=== PATIENT | female | born 1980 | race Caucasian/White ===

== ENCOUNTER 2017-07-28 07:00 | Inpatient (IN) | payer MEDICAID ==
[~2017-07-28] VITALS: Ht 165.1 cm; Wt 43.9 kg
[2017-07-28] MEDS ORDERED: SODIUM CHLORIDE 0.9% 1,000 ML IV ONE (08:07)
[2017-07-28 08:10] LABS: Basophils % (auto) 1.2 % (0.0-2.0); Eosinophils # (auto) 0.1 uL; Eosinophils % (auto) 2.1 % (0.0-7.0); Monocytes # (auto) 0.4 uL; Nucleated Red Blood Cells % 0.2 %
[2017-07-28 08:11] LABS: Basophils # (auto) 0 uL; Hematocrit 42.7 % (36.0-46.0); Hemoglobin 14.5 g/dL (12.2-16.2); Lymphocytes # (auto) 1.6 uL; Lymphocytes % (auto) 38.7 % (10.0-50.0); Mean Corpuscular Hemoglobin 34.8 pg (28.0-32.0); Mean Corpuscular Hgb Conc. 33.9 g/dL (32.0-36.0); Mean Corpuscular Volume 102.6 fL (80.0-100.0); Monocytes % (auto) 10.1 % (0.0-12.0); Neutrophils % (auto) 47.9 % (37.0-80.0); Platelet Count (auto) 166 10^3/uL (140-450); Red Blood Cells 4.16 10^6/uL (4.0-5.20); Red Cell Distribution Width 17.3 % (11.8-14.3); White Blood Cell 4.2 10^3/uL (4.4-10.8)
[2017-07-28 08:27] LABS: Albumin 3.8 g/dL (3.4-5.0); BUN/Creatinine Ratio 18.6; Calcium 8.3 mg/dL (8.5-10.1); Potassium 3.1 mmol/L (3.5-5.1); Total Protein 7.6 g/dL (6.4-8.2)
[2017-07-28 09:44] LABS: Urine Pregnacy Test Negative (Negative)
[2017-07-28 09:49] LABS: Amphetamine Screen, Urine NEGATIVE (NEGATIVE); Barbiturate Scree,Urine NEGATIVE (NEGATIVE); Benzodiazephine Screen, Urine NEGATIVE (NEGATIVE); Cannabinoid Screen, Urine NEGATIVE (NEGATIVE); Cocaine Screen, Urine NEGATIVE (NEGATIVE); Opiate Scree,Urine NEGATIVE (NEGATIVE); Phencyclidine Screen, Urine NEGATIVE (NEGATIVE)
[2017-07-28 09:52] LABS: Urine Bacteria FEW /hpf (None Seen); Urine Blood TRACE /uL (Negative); Urine Mucus FEW (None Seen); Urine Specific Gravity 1.015 (1.001-1.035); Urine WBC 3 /hpf (0 - 5)
[2017-07-28] MEDS ORDERED: THIAMINE HCL 100 MG/ML 2ML VIAL IV ONE (12:15)
[2017-07-28] MEDS ORDERED: LORazepam 2MG/ML-1ML VIAL IV PRN (12:15)
[2017-07-28] MEDS ORDERED: NITROGLYCERIN 0.4 MG SL TAB SL PRN (12:15)
[2017-07-28] MEDS ORDERED: MORPHINE SULFATE 4 MG/ML SYR/VIAL IV PRN (12:15)
[2017-07-28] MEDS ORDERED: chlordiazePOXIDE HCL 25 MG CAP PO PRN (12:15)
[2017-07-28] MEDS ORDERED: MORPHINE SULFATE 10 MG/ML INJ 1ML SDV IV PRN ×2 (12:15→12:30)
[2017-07-28] MEDS ORDERED: cefTRIAXone 1GM/10ml IVPUSH 10 ML IV ONE (12:15)
[2017-07-28] MEDS ORDERED: chlordiazePOXIDE HCL 5 MG CAP PO ONE (12:30)
[2017-07-28] MEDS ORDERED: FAMOTIDINE (10MG/ML) 2ML VL IV ONE (12:30)
[2017-07-28] MEDS: SODIUM CHLORIDE 0.9% 1,000 ML IV SCH ×2 (13:01→18:54)
[2017-07-28] MEDS: POTASSIUM CHL 20MEQ/100ML 100 ML IV SCH ×3 (13:12→16:20)
[2017-07-28] MEDS ORDERED: PANTOPRAZOLE 40 MG/10 ML VIAL IV ONE (13:30)
[2017-07-28] MEDS: GENTAMICIN OPTH sol 0.3% 5ml RIGHTEYE SCH ×3 (15:30→21:35)
[2017-07-28 15:50] VITALS: BP_SYST 99; BP_DIAS 57; BP_DIAS 61
[2017-07-28] MEDS: metroNIDAZOLE 500MG/100ML 100 ML IV SCH ×2 (16:20→21:35)
[2017-07-28 17:40] VITALS: BP 90/60
[2017-07-28] MEDS: chlordiazePOXIDE HCL 5 MG CAP PO SCH ×2 (18:15→23:57)
[2017-07-28] MEDS: MORPHINE SULFATE 10 MG/ML INJ 1ML SDV IV PRN (20:03)
[2017-07-28] MEDS: PANTOPRAZOLE 40 MG/10 ML VIAL IV SCH (21:35)
[2017-07-28 22:00] VITALS: BP 117/86
[2017-07-28] MEDS ORDERED: FAMOTIDINE (10MG/ML) 2ML VL IV SCH (22:00)
[2017-07-28] MEDS ORDERED: POTASSIUM CHL 20MEQ/100ML 100 ML IV ONE (23:08)
[2017-07-29] MEDS: GENTAMICIN OPTH sol 0.3% 5ml RIGHTEYE SCH ×6 (01:38→21:25)
[2017-07-29] MEDS: SODIUM CHLORIDE 0.9% 1,000 ML IV SCH ×4 (01:38→21:24)
[2017-07-29] MEDS: PROMETHAZINE HCL 25 MG/ML 1ML IV PRN ×2 (01:49→12:41)
[2017-07-29] MEDS: MORPHINE SULFATE 10 MG/ML INJ 1ML SDV IV PRN ×2 (01:49→22:04)
[2017-07-29 05:00] VITALS: BP 120/79
[2017-07-29] MEDS: chlordiazePOXIDE HCL 5 MG CAP PO SCH ×4 (05:31→23:34)
[2017-07-29] MEDS: metroNIDAZOLE 500MG/100ML 100 ML IV SCH (05:31)
[2017-07-29 05:44] LABS: Basophils # (auto) 0 uL; Basophils % (auto) 0.8 % (0.0-2.0); Eosinophils # (auto) 0 uL; Mean Corpuscular Volume 104.8 fL (80.0-100.0); Monocytes # (auto) 0.5 uL; Neutrophils # (auto) 3.2 uL
[2017-07-29 05:47] LABS: Eosinophils % (auto) 0.2 % (0.0-7.0); Hematocrit 34.2 % (36.0-46.0); Hemoglobin 11.5 g/dL (12.2-16.2); Lymphocytes % (auto) 21.4 % (10.0-50.0); Mean Corpuscular Hemoglobin 35.4 pg (28.0-32.0); Mean Corpuscular Hgb Conc. 33.8 g/dL (32.0-36.0); Monocytes % (auto) 10.2 % (0.0-12.0); Neutrophils % (auto) 67.4 % (37.0-80.0); Nucleated Red Blood Cells % 0.1 %; Platelet Count (auto) 120 10^3/uL (140-450); Red Blood Cells 3.26 10^6/uL (4.0-5.20); Red Cell Distribution Width 17.1 % (11.8-14.3); White Blood Cell 4.8 10^3/uL (4.4-10.8)
[2017-07-29 06:07] LABS: Albumin 3.5 g/dL (3.4-5.0); BUN/Creatinine Ratio 9.5; Bilirubin, Total 1.8 mg/dL (0.2-1.0); Calcium 7.8 mg/dL (8.5-10.1); Potassium 4.9 mmol/L (3.5-5.1); Total Protein 6.8 g/dL (6.4-8.2)
[2017-07-29 06:47] LABS: Cholesterol 222 mg/dL (< 200); HDL Cholesterol 138 mg/dL (40-59); LDL Cholesterol 72 mg/dL (< 100); Triglycerides 99 mg/dL (< 150)
[2017-07-29 07:53] VITALS: BP 118/74
[2017-07-29] MEDS ORDERED: cefTRIAXone 1GM/10ml IVPUSH 10 ML IV SCH (09:00)
[2017-07-29 09:39] LABS: Hepatitis B Surface Antigen Negative (Negative)
[2017-07-29 09:43] LABS: Hepatitis B Core IgM Negative; Hepatitis C Antibody Negative (Negative)
[2017-07-29 09:45] LABS: Hepatitis A Ab IgM Negative
[2017-07-29] MEDS: PANTOPRAZOLE 40 MG/10 ML VIAL IV SCH ×2 (09:57→21:24)
[2017-07-29] MEDS: THIAMINE HCL 100 MG/ML 2ML VIAL IV SCH (09:57)
[2017-07-29 11:34] VITALS: BP 120/88
[2017-07-29 15:01] LABS: INR 0.97 (0.9-1.15); Partial Thromboplastin Time 25.8 sec (22.64-33.71); Prothrombin Time 10.6 sec (9.37-12.3)
[2017-07-29 15:59] VITALS: BP 119/92
[2017-07-29] MEDS ORDERED: MORPHINE SULF INJ 2 MG/ML SYRINGE 1ML ONE (22:00)
[2017-07-29 22:11] VITALS: BP 132/92
[2017-07-30] MEDS: GENTAMICIN OPTH sol 0.3% 5ml RIGHTEYE SCH ×5 (01:30→17:39)
[2017-07-30] MEDS: PROMETHAZINE HCL 25 MG/ML 1ML IV PRN ×2 (01:37→05:41)
[2017-07-30] MEDS: SODIUM CHLORIDE 0.9% 1,000 ML IV SCH ×2 (04:49→10:54)
[2017-07-30 05:00] VITALS: BP 114/85
[2017-07-30] MEDS ORDERED: MORPHINE SULF INJ 2 MG/ML SYRINGE 1ML ONE (05:35)
[2017-07-30] MEDS: chlordiazePOXIDE HCL 5 MG CAP PO SCH ×3 (05:39→17:39)
[2017-07-30 05:40] LABS: Basophils # (auto) 0 uL; Basophils % (auto) 0.3 % (0.0-2.0); Eosinophils # (auto) 0 uL; Lymphocytes # (auto) 0.5 uL; Monocytes # (auto) 0.3 uL; Neutrophils % (auto) 84.9 % (37.0-80.0); Nucleated Red Blood Cells % 0.1 %; White Blood Cell 5.6 10^3/uL (4.4-10.8)
[2017-07-30] MEDS: MORPHINE SULFATE 10 MG/ML INJ 1ML SDV IV PRN (05:41)
[2017-07-30 05:43] LABS: Eosinophils % (auto) 0.9 % (0.0-7.0); Hematocrit 40.5 % (36.0-46.0); Hemoglobin 13.8 g/dL (12.2-16.2); Lymphocytes % (auto) 9.1 % (10.0-50.0); Mean Corpuscular Hemoglobin 35.9 pg (28.0-32.0); Mean Corpuscular Volume 105.6 fL (80.0-100.0); Monocytes % (auto) 4.8 % (0.0-12.0); Neutrophils # (auto) 4.7 uL; Platelet Count (auto) 112 10^3/uL (140-450); Red Blood Cells 3.83 10^6/uL (4.0-5.20); Red Cell Distribution Width 16.9 % (11.8-14.3)
[2017-07-30 06:01] LABS: Albumin 3.6 g/dL (3.4-5.0); Calcium 8.5 mg/dL (8.5-10.1); Potassium 3.8 mmol/L (3.5-5.1)
[2017-07-30 06:04] LABS: Bilirubin, Total 1.9 mg/dL (0.2-1.0); Total Protein 7.3 g/dL (6.4-8.2)
[2017-07-30] MEDS ORDERED: LIDOCAINE VISCOUS 2% 15ML UD ONE (08:00)
[2017-07-30] MEDS ORDERED: SODIUM CHLORIDE LOCK 10 ML ONE (08:00)
[2017-07-30] MEDS ORDERED: diphenhdrAMINE HCL 50 MG/1 ML VL ONE (08:01)
[2017-07-30] MEDS ORDERED: fentaNYL CITRATE 100 MCG/2 ML VL ONE (08:01)
[2017-07-30] MEDS ORDERED: MIDAZOLAM HCL 5 MG/ML-1ML VIAL ONE (08:01)
[2017-07-30 08:33] VITALS: BP 107/78
[2017-07-30] MEDS: PANTOPRAZOLE 40 MG/10 ML VIAL IV SCH (10:02)
[2017-07-30] MEDS: THIAMINE HCL 100 MG/ML 2ML VIAL IV SCH (10:02)
[2017-07-30] MEDS ORDERED: GEN03OS RIGHTEYE (12:44)
[2017-07-30] MEDS ORDERED: PANT40T PO (12:44)
[2017-07-30] MEDS ORDERED: HYDROcodone-ACET 5/325MG TAB PO PRN (12:45)
[2017-07-30] MEDS ORDERED: PROM25TA5 PO (12:49)
[2017-07-30] MEDS ORDERED: FOLIC ACID 1 MG TAB PO SCH (13:00)
[2017-07-30 13:04] VITALS: BP 126/83
[2017-07-30 16:53] VITALS: BP 133/91
[2017-07-30] MEDS ORDERED: LABE100T PO (17:45)
[2017-07-30] MEDS ORDERED: PANTOPRAZOLE 40 MG TAB PO SCH (22:00)
[2017-07-30] MEDS ORDERED: LABETALOL HCL 200 MG TAB PO SCH (22:00)
[2017-07-31] MEDS ORDERED: THIAMINE HCL 100 MG TAB PO SCH (10:00)
== END 2017-07-30 19:30 | disposition home or self-care (01) | DRG 775 ==
LOC: ER 07:00 → TELE 07:01 → TELE-WESTW 15:18 → WEST WING 07-29 14:50
PROVIDERS: ADMIT Internal Medicine; ATTEND Internal Medicine
PROC: 0DB68ZX Excision of Stomach, Via Natural or Artificial Opening Endoscopic, Diagnostic (ICD-10-PCS; principal; 2017-07-30 11:12)
DX: F10.229 Alcohol dependence with intoxication, unspecified (principal); F10.239 Alcohol dependence with withdrawal, unspecified; D69.6 Thrombocytopenia, unspecified; K29.21 Alcoholic gastritis with bleeding; K70.10 Alcoholic hepatitis without ascites; F31.9 Bipolar disorder, unspecified; K70.0 Alcoholic fatty liver; K75.9 Inflammatory liver disease, unspecified; G89.4 Chronic pain syndrome; M79.7 Fibromyalgia; R53.82 Chronic fatigue, unspecified; Y90.8 Blood alcohol level of 240 mg/100 ml or more; F41.9 Anxiety disorder, unspecified; H53.8 Other visual disturbances; E87.6 Hypokalemia; H10.9 Unspecified conjunctivitis; R63.6 Underweight; Z68.1 Body mass index [BMI] 19.9 or less, adult
CPT/HCPCS: 36415; 43239; 70450; 74176; 76705; 80053; 80061; 80074; 80307; 80320; 81001; 81025; 82150; 83690; 83735; 84443; 84702; 85025; 85610; 85652; 85730; 86141; 87086; 96361; 96365; 96375; C9113; J2250; J3480; J3490

== ENCOUNTER 2018-03-13 20:57 | Inpatient (IN) | payer MEDICAID ==
[~2018-03-13] VITALS: Ht 162.6 cm; Wt 52.1 kg
[~2018-03-13 20:57] MED LIST: GEN03OS RIGHTEYE; LABE100T4 PO; PANT40T PO; PROM25TA5 PO
[2018-03-13 21:46] LABS: Basophils # (auto) 0 uL; Basophils % (auto) 0.6 % (0.0-2.0); Eosinophils # (auto) 0.1 uL; Eosinophils % (auto) 1.5 % (0.0-7.0); Hematocrit 38.5 % (36.0-46.0); Hemoglobin 12.7 g/dL (12.2-16.2); Lymphocytes % (auto) 19.8 % (10.0-50.0); Mean Corpuscular Hemoglobin 30.9 pg (28.0-32.0); Mean Corpuscular Volume 93.6 fL (80.0-100.0); Monocytes # (auto) 0.5 uL; Monocytes % (auto) 10.3 % (0.0-12.0); Neutrophils # (auto) 3.6 uL; Neutrophils % (auto) 67.8 % (37.0-80.0); Nucleated Red Blood Cells % 0.6 %; Platelet Count (auto) 146 10^3/uL (140-450); Red Blood Cells 4.12 10^6/uL (4.0-5.20); Red Cell Distribution Width 16.6 % (11.8-14.3); White Blood Cell 5.2 10^3/uL (4.4-10.8)
[2018-03-13 22:00] LABS: INR 1.06 (0.9-1.15); Partial Thromboplastin Time 26.1 sec (23.78-33.04); Prothrombin Time 11.3 sec (9.27-12.13)
[2018-03-13 22:32] LABS: Alanine Aminotransferase 44 U/L (13-56); Albumin 3.9 g/dL (3.4-5.0); Alkaline Phosphatase 246 U/L (45-117); Amylase 152 U/L (25-115); Anion Gap 9 (5-15); Aspartate Aminotransferase 151 U/L (15-37); BUN/Creatinine Ratio 6.1; Blood Urea Nitrogen 5 mg/dL (7-18); Calcium 9.7 mg/dL (8.5-10.1); Carbon Dioxide 23 mmol/L (21-32); Chloride 102 mmol/L (98-107); GFR African American 101 mL/min; GFR Non-African American 84 mL/min; Glucose 154 mg/dL (74-106); Lipase 4740 U/L (73-393); Magnesium 1.9 mg/dL (1.6-2.6); Sodium 134 mmol/L (136-145); Total Protein 8.1 g/dL (6.4-8.2)
[2018-03-13 22:58] LABS: Urine Bacteria NONE SEEN /hpf (None Seen); Urine Blood Negative /uL (Negative); Urine Specific Gravity 1.013 (1.001-1.035); Urine WBC <1 /hpf (0 - 5)
[2018-03-14] MEDS ORDERED: IOHEXOL 300 MG/ML 100ML BOTTLE IJ ONE (02:26)
[2018-03-14] MEDS ORDERED: KETOROLAC TROMETH 30 MG/ML 1ML VIAL IV ONE (02:30)
[2018-03-14] MEDS ORDERED: SODIUM CHLORIDE 0.9% 3,000 ML IV ONE (02:30)
[2018-03-14] MEDS ORDERED: ONDANSETRON HCL 4 MG/2 ML VIAL IV ONE (02:30)
[2018-03-14] MEDS ORDERED: SODIUM CHLORIDE 0.9% 1,000 ML IV ONE ×2 (02:30→09:45)
[2018-03-14] MEDS ORDERED: POTASSIUM CHL 20 Meq TABLET PO ONE (02:30)
[2018-03-14] MEDS ORDERED: fentaNYL CITRATE 100 MCG/2 ML VL IV ONE (02:30)
[2018-03-14] MEDS: POTASSIUM CHL 20MEQ/100ML 100 ML IV SCH ×2 (04:30→05:58)
[2018-03-14] MEDS ORDERED: DOCUSATE SOD 100 MG CAP PO PRN (09:45)
[2018-03-14] MEDS ORDERED: TEMAZEPAM 15 MG CAP PO PRN (09:45)
[2018-03-14] MEDS ORDERED: MORPHINE SULF INJ 2 MG/ML SYRINGE 1ML IV PRN (09:45)
[2018-03-14] MEDS ORDERED: NITROGLYCERIN 0.4 MG SL TAB SL PRN (09:45)
[2018-03-14] MEDS ORDERED: LORazepam 2MG/ML-1ML VIAL IV PRN (09:45)
[2018-03-14] MEDS ORDERED: ACETAMINOPHEN 325 MG TAB PO PRN (09:45)
[2018-03-14] MEDS ORDERED: DEXTROSE (50%) 50ML SYRG IV PRN (09:45)
[2018-03-14] MEDS ORDERED: chlordiazePOXIDE HCL 25 MG CAP PO PRN (09:45)
[2018-03-14] MEDS ORDERED: ONDANSETRON HCL 4 MG/2 ML VIAL IV PRN (09:45)
[2018-03-14] MEDS: ASCORBIC ACID 500 MG TAB PO SCH ×2 (10:13→22:02)
[2018-03-14] MEDS: ZINC SULFATE 220mg CAP or TAB PO SCH (10:13)
[2018-03-14] MEDS: MULTIPLE VITAMIN TAB PO SCH (10:13)
[2018-03-14] MEDS: FAMOTIDINE 20 MG TAB PO SCH ×2 (10:13→22:01)
[2018-03-14] MEDS: SODIUM CHLORIDE 0.9% 1,000 ML IV SCH ×2 (10:46→19:16)
[2018-03-14] MEDS: InsuLIN REG 1unit/0.01ml Soln (100units/ml) SC SCH ×3 (11:30→22:00)
[2018-03-14] MEDS: ACCU-CHEK COMFORT CURVE STRIP VI SCH ×3 (11:39→22:02)
[2018-03-14] MEDS: MORPHINE SULF INJ 2 MG/ML SYRINGE 1ML IV PRN ×2 (12:56→22:32)
[2018-03-14 17:33] VITALS: BP 111/75
[2018-03-14] MEDS: GABAPENTIN 300 MG CAP PO SCH ×2 (17:55→22:01)
[2018-03-14] MEDS: HYDROcodone-ACET 5/325MG TAB PO PRN (19:14)
[2018-03-14] MEDS ORDERED: PREG50CA PO (19:22)
[2018-03-14] MEDS ORDERED: SERT25TA84 PO (19:22)
[2018-03-14] MEDS ORDERED: PROMETHAZINE HCL 6.25 MG/5 ML ORAL SYRUP PO PRN (20:15)
[2018-03-14] MEDS: LABETALOL HCL 200 MG TAB PO SCH (22:00)
[2018-03-14 22:04] VITALS: BP 107/73
[2018-03-15 05:03] VITALS: BP 102/76
[2018-03-15] MEDS: GABAPENTIN 300 MG CAP PO SCH ×3 (05:41→21:51)
[2018-03-15] MEDS: SODIUM CHLORIDE 0.9% 1,000 ML IV SCH ×3 (05:41→13:30)
[2018-03-15] MEDS: HYDROcodone-ACET 5/325MG TAB PO PRN ×3 (05:42→18:48)
[2018-03-15 06:03] LABS: Basophils # (auto) 0 uL; Basophils % (auto) 0.8 % (0.0-2.0); Eosinophils # (auto) 0.2 uL; Eosinophils % (auto) 6.2 % (0.0-7.0); Hematocrit 28.2 % (36.0-46.0); Hemoglobin 9.6 g/dL (12.2-16.2); Lymphocytes % (auto) 34.7 % (10.0-50.0); Mean Corpuscular Hemoglobin 32.3 pg (28.0-32.0); Mean Corpuscular Hgb Conc. 33.9 g/dL (32.0-36.0); Mean Corpuscular Volume 95.1 fL (80.0-100.0); Monocytes # (auto) 0.3 uL; Monocytes % (auto) 9.8 % (0.0-12.0); Neutrophils # (auto) 1.5 uL; Neutrophils % (auto) 48.5 % (37.0-80.0); Nucleated Red Blood Cells % 0.1 %; Platelet Count (auto) 101 10^3/uL (140-450); Red Blood Cells 2.96 10^6/uL (4.0-5.20); Red Cell Distribution Width 16.9 % (11.8-14.3)
[2018-03-15 06:19] LABS: Albumin 2.7 g/dL (3.4-5.0); BUN/Creatinine Ratio 5.4; Calcium 7.9 mg/dL (8.5-10.1); Potassium 3.6 mmol/L (3.5-5.1)
[2018-03-15 06:21] LABS: Bilirubin, Total 0.5 mg/dL (0.2-1.0); Total Protein 5.6 g/dL (6.4-8.2)
[2018-03-15 06:24] LABS: Amylase 76 U/L (25-115); Lipase 1350 U/L (73-393)
[2018-03-15] MEDS: ACCU-CHEK COMFORT CURVE STRIP VI SCH ×2 (06:28→11:30)
[2018-03-15] MEDS: InsuLIN REG 1unit/0.01ml Soln (100units/ml) SC SCH ×2 (06:28→11:30)
[2018-03-15 08:03] VITALS: BP 104/69
[2018-03-15] MEDS: ASCORBIC ACID 500 MG TAB PO SCH ×2 (09:15→21:51)
[2018-03-15] MEDS: MULTIPLE VITAMIN TAB PO SCH (09:15)
[2018-03-15] MEDS: FAMOTIDINE 20 MG TAB PO SCH (09:16)
[2018-03-15] MEDS: ZINC SULFATE 220mg CAP or TAB PO SCH (09:16)
[2018-03-15] MEDS: PANTOPRAZOLE 40 MG TAB PO SCH (09:19)
[2018-03-15] MEDS: LABETALOL HCL 200 MG TAB PO SCH ×2 (09:21→21:52)
[2018-03-15 12:29] VITALS: BP 119/85
[2018-03-15] MEDS: MORPHINE SULF INJ 2 MG/ML SYRINGE 1ML IV PRN ×2 (13:38→20:13)
[2018-03-15] MEDS: SERTRALINE HCL 50 MG TAB PO SCH (16:21)
[2018-03-15 17:14] VITALS: BP 108/77
[2018-03-15 20:05] VITALS: BP 111/78
[2018-03-15 21:53] VITALS: BP 113/76
[2018-03-16] MEDS: SODIUM CHLORIDE 0.9% 1,000 ML IV SCH ×2 (02:07→14:30)
[2018-03-16 05:21] VITALS: BP 117/77
[2018-03-16] MEDS: GABAPENTIN 300 MG CAP PO SCH ×2 (05:57→14:00)
[2018-03-16] MEDS: HYDROcodone-ACET 5/325MG TAB PO PRN (05:58)
[2018-03-16 09:00] VITALS: BP 112/81
[2018-03-16] MEDS ORDERED: PANT40T PO (09:25)
[2018-03-16] MEDS ORDERED: MULTTAB99 PO (09:25)
[2018-03-16] MEDS: MULTIPLE VITAMIN TAB PO SCH (09:28)
[2018-03-16] MEDS: PANTOPRAZOLE 40 MG TAB PO SCH (09:28)
[2018-03-16] MEDS: ZINC SULFATE 220mg CAP or TAB PO SCH (09:28)
[2018-03-16] MEDS: ASCORBIC ACID 500 MG TAB PO SCH (09:28)
[2018-03-16] MEDS: SERTRALINE HCL 50 MG TAB PO SCH (09:29)
[2018-03-16] MEDS: LABETALOL HCL 200 MG TAB PO SCH (10:00)
== END 2018-03-16 19:15 | disposition home or self-care (01) | DRG 282 ==
LOC: EDBD 20:57 → ER 21:06 → TELE 21:07 → TELE-WESTW 03-14 12:27
PROVIDERS: ADMIT Internal Medicine; ATTEND Internal Medicine
DX: K85.20 Alcohol induced acute pancreatitis without necrosis or infection (principal); D61.818 Other pancytopenia; E11.21 Type 2 diabetes mellitus with diabetic nephropathy; R65.10 Systemic inflammatory response syndrome (SIRS) of non-infectious origin without acute organ dysfunction; K76.0 Fatty (change of) liver, not elsewhere classified; E11.65 Type 2 diabetes mellitus with hyperglycemia; E86.0 Dehydration; E11.22 Type 2 diabetes mellitus with diabetic chronic kidney disease; E87.1 Hypo-osmolality and hyponatremia; E87.6 Hypokalemia; F41.9 Anxiety disorder, unspecified; F32.9 Major depressive disorder, single episode, unspecified; N18.9 Chronic kidney disease, unspecified; K29.70 Gastritis, unspecified, without bleeding; F10.239 Alcohol dependence with withdrawal, unspecified; K86.0 Alcohol-induced chronic pancreatitis; M43.8X4 Other specified deforming dorsopathies, thoracic region
CPT/HCPCS: 36415; 74177; 80053; 80320; 81001; 81025; 82150; 82962; 83036; 83690; 83735; 83880; 84443; 84484; 84702; 85025; 85610; 85730; 93005; 93306; 96361; 96374; 96375; J1885; J2405; J3480

== ENCOUNTER 2018-03-21 22:51 | Emergency (ER) | payer MEDICAID ==
[~2018-03-21] VITALS: Ht 165.1 cm; Wt 45.4 kg
[~2018-03-21 22:51] MED LIST changes: -GEN03OS RIGHTEYE; -LABE100T4 PO; +MULTTAB99 PO; +PREG50CA PO; -PROM25TA5 PO; +SERT25TA84 PO
[2018-03-21 23:26] VITALS: BP 105/60
[2018-03-22] MEDS ORDERED: methylPREDNISolone SOD SUCC 125 MG/2 ML VL IM ONE (02:00)
[2018-03-22] MEDS ORDERED: KETOROLAC TROMETH 60MG/2ML VIAL IM ONE (02:00)
== END 2018-03-22 02:44 | disposition home or self-care (01) ==
LOC: ER 22:53
DX: M54.6 Pain in thoracic spine (principal); G89.29 Other chronic pain; Z98.890 Other specified postprocedural states; Z76.0 Encounter for issue of repeat prescription
CPT/HCPCS: 96372; 99284; J1885; J2930

== ENCOUNTER 2023-06-30 16:41 | Emergency (ER) | payer MEDICAID ==
[~2023-06-30] VITALS: Ht 165.1 cm; Wt 62.2 kg
[2023-06-30 17:52] LABS: Basophils # (auto) 0 10 ^3/uL (0-0.2); Eosinophils # (auto) 0.1 10 ^3/uL (0-0.8); Hemoglobin 9.7 g/dL (12.2-16.2); Monocytes # (auto) 0.3 10 ^3/uL (0-1.3); Neutrophils # (auto) 1.7 10 ^3/uL (1.6-8.6); White Blood Cell 4.7 10^3/uL (4.4-10.8)
[2023-06-30 17:55] LABS: Basophils % (auto) 0.6 % (0.0-2.0); Eosinophils % (auto) 2.3 % (0.0-7.0); Hematocrit 31.6 % (36.0-46.0); Lymphocytes # (auto) 2.5 10 ^3/uL (0.4-5.4); Mean Corpuscular Hemoglobin 20.6 pg (28.0-32.0); Mean Corpuscular Hgb Conc. 30.7 g/dL (32.0-36.0); Monocytes % (auto) 7.4 % (0.0-12.0); Neutrophils % (auto) 36.7 % (37.0-80.0); Nucleated Red Blood Cells % 0.1 %; Red Blood Cells 4.72 10^6/uL (4.0-5.20)
[2023-06-30 18:11] LABS: Alanine Aminotransferase 14 U/L (7-40); Albumin 4.6 g/dL (3.2-4.8); Alkaline Phosphatase 88 U/L (46-116); Anion Gap 5 (5-15); Aspartate Aminotransferase 13 U/L (13-40); BUN/Creatinine Ratio 15.9 (10.0-20.0); Bilirubin, Total 0.3 mg/dL (0.2-1.0); Blood Urea Nitrogen 10 mg/dL (9-23); Calcium 8.9 mg/dL (8.7-10.4); Carbon Dioxide 26 mmol/L (20-30); Chloride 107 mmol/L (98-107); Glucose 106 mg/dL (74-106); Potassium 3.5 mmol/L (3.5-5.1); Sodium 138 mmol/L (136-145); Total Protein 7.6 g/dL (5.7-8.2)
[2023-06-30] MEDS ORDERED: CEFD300C2 PO (19:03)
[2023-06-30] MEDS ORDERED: DEXT1SYP9 PO (19:03)
[2023-06-30] MEDS ORDERED: METO-281 PO (19:03)
[2023-06-30 19:29] LABS: Hypochromia Marked; Platelet Estimate Adequate
[2023-06-30 19:40] VITALS: BP 123/76; PULSE 94; RESP 16; TEMP 97.9; O2SAT 99
== END 2023-06-30 19:42 | disposition home or self-care (01) ==
LOC: ER 16:42
DX: J18.1 Lobar pneumonia, unspecified organism (principal); R07.89 Other chest pain
CPT/HCPCS: 36415; 71046; 80053; 83735; 85025; 93005